=== PATIENT | female | born 1985 | race Caucasian/White ===

== ENCOUNTER 2023-07-21 20:28 | Emergency (ER) | payer OTHER ==
[~2023-07-21] VITALS: Ht 170.2 cm; Wt 127.0 kg
[2023-07-21 20:47] VITALS: BP 153/100; PULSE 85; RESP 18; TEMP 98.6; O2SAT 99
[2023-07-21] MEDS ORDERED: COMPAZINE IM STA (21:15)
[2023-07-21] MEDS ORDERED: DILAUDID IM STA (21:15)
[2023-07-21] MEDS ORDERED: COMPAZINE ONE (21:17)
[2023-07-21] MEDS ORDERED: DILAUDID ONE (21:17)
[2023-07-21 21:37] VITALS: BP 153/100; PULSE 85; RESP 18; TEMP 98.6; O2SAT 99
[2023-07-21] MEDS ORDERED: LIDOCAINE HCL VISCOUS MM STA (21:45)
[2023-07-21] MEDS ORDERED: MYLANTA PO STA (21:45)
[2023-07-21] MEDS ORDERED: MYLANTA ONE (21:45)
[2023-07-21 21:46] VITALS: BP 147/86; PULSE 97; RESP 18; O2SAT 98
[2023-07-21] MEDS ORDERED: LIDOCAINE HCL VISCOUS ONE (21:46)
[2023-07-21 22:08] LABS: BASOPHIL % 0.3 % (0.0-0.2); EOSINOPHIL # 0.3 10^3/uL (0.0-0.2); EOSINOPHIL % 2.6 % (0.0-5.0); HEMATOCRIT(ML) 43.3 % (36.0-46.0); HEMOGLOBIN 14.8 g/dL (12.0-15.0); MEAN CORP HGB CONCENTRATION 34.2 g/dL (33-36.5); MEAN CORP VOLUME 84.9 fL (78-100); MONOCYTES # 0.9 10^3/uL (0.3-0.8); MONOCYTES % 8.8 % (5.0-12.0); NEUTROPHIL # 5.8 10^3/uL (1.8-7.7); NEUTROPHILS % 56.2 % (41.0-85.0); PLATELET COUNT 305 10^3/uL (150-400); WHITE BLOOD CELL 10.3 10^3/uL (4.5-11.0)
[2023-07-21 22:15] LABS: +ADD MANUAL DIFF(NO CHRG) NO
[2023-07-21 22:22] LABS: ALBUMIN(ML) 3.3 g/dL (3.4-5.0); ALBUMIN/GLOBULIN RATIO 0.785; ANION GAP 14.1; BUN/CREATININE RATIO 18.1 (10.0-20.0); CARBON DIOXIDE 22.7 mmol/L (20.0-32); CREATININE SERUM 1.16 mg/dL (0.59-1.40); EST GFR, NON-AA 52.9 (>/=60); POTASSIUM 3.8 mmol/L (3.6-5.2)
[2023-07-21 22:45] VITALS: BP 128/74; PULSE 81; RESP 18; O2SAT 97
== END 2023-07-21 23:00 | disposition home or self-care (01) ==
LOC: ER 20:28
DX: G43.911 Migraine, unspecified, intractable, with status migrainosus (principal); K21.9 Gastro-esophageal reflux disease without esophagitis; Z88.5 Allergy status to narcotic agent; Z88.8 Allergy status to other drugs, medicaments and biological substances
CPT/HCPCS: 99285; 70450; 96372; 74176; 80053; 85025; 36415; 83690; 84703; 93005; J1170; J0780; J3490